=== PATIENT | male | born 1995 | race Caucasian/White ===

== ENCOUNTER 2018-04-17 15:04 | Emergency (ER) | payer OTHER ==
[2018-04-17] MEDS ORDERED: Tetan/Diph/Pertus SYR(Tdap)* 0.5 ML SYR(BOOSTRIX) use SYR IM ONE (17:22)
--- NOTE | 2018-04-17 17:23 | ED ---
Laceration/Wound HPI - HPI Summary HPI Summary: Patient is a 22-year-old male presenting to the ED with a laceration to the left hand which measures approximately 5 cm in length. He states he scraped it on a metal piece. He is unsure of last tetanus. Bleeding is well-controlled. Denies any pain. Denies any numbness or tingling. He is able to flex and extend about the MCP joints as well as the wrist. He has not taken any medication [employer]. - History of Current Complaint Stated Complaint: LT HAND LACERATION Time Seen by Provider: 04/17/18 15:29 Hx Obtained From: Patient Mechanism of Injury: Sharp/Blunt Trauma Onset/Duration: Sudden Onset Aggravating: Movement Alleviating: Compression Timing: Constant Onset Severity: Mild Current Severity: Mild Pain Intensity: 2 Pain Scale Used: 0-10 Numeric Associated Signs & Symptoms: Negative Related Hx: Dominant Hand (Left) - Allergy/Home Medications Allergies/Adverse Reactions: Allergies Allergy/AdvReac Type Severity Reaction Status Date / Time amoxicillin Allergy Rash Verified 04/21/18 19:24 PMH/Surg Hx/FS Hx/Imm Hx Previously Healthy: Yes Endocrine/Hematology History: Denies: Hx Diabetes, Hx Thyroid Disease Cardiovascular History: Denies: Hx Hypertension Respiratory History: Denies: Hx Asthma, Hx Chronic Obstructive Pulmonary Disease (COPD) GI History: Denies: Hx Ulcer - Immunization History Date of Tetanus Vaccine: Pt unsure. Unable to state PCP for call to determine last tetanus Hx Pertussis Vaccination: No Immunizations Up to Date: Yes Infectious Disease History: No Infectious Disease History: Denies: Hx Hepatitis, Hx Human Immunodeficiency Virus (HIV), Traveled Outside the [place] in Last 30 Days - Social History Occupation: Employed Full-time Lives: With Family Alcohol Use: None Hx Substance Use: No Substance Use Type: Reports: None Smoking Status (MU): Unknown if Ever Smoked Review of Systems Constitutional: Negative Negative: Fever, Chills, Fatigue, Skin Diaphoresis Negative: Palpitations, Chest Pain Negative: Shortness Of Breath, Cough Genitourinary: Negative Positive: no symptoms reported, see HPI Negative: Arthralgia, Myalgia Positive: Other - 5cm laceration Neurological: Negative All Other Systems Reviewed And Are Negative: Yes Physical Exam Triage Information Reviewed: Yes Vital Signs On Initial Exam: Initial Vitals Temp Pulse Resp BP Pulse Ox 99.2 F 64 16 123/69 99 04/17/18 15:17 04/17/18 15:17 04/17/18 15:17 04/17/18 15:17 04/17/18 15:17 Vital Signs Reviewed: Yes Appearance: Positive: Well-Appearing, Well-Nourished Skin: Positive: Warm, Skin Color Reflects Adequate Perfusion, Other - 5cm laceration to the left palm Head/Face: Positive: Normal Head/Face Inspection Eyes: Positive: EOMI, JENNIFFER, Conjunctiva Clear Neck: Positive: Supple, No Lymphadenopathy Respiratory/Lung Sounds: Positive: Clear to Auscultation, Breath Sounds Present Cardiovascular: Positive: RRR, Pulses are Symmetrical in both Upper and Lower Extremities Musculoskeletal: Positive: Normal, Strength/ROM Intact Neurological: Positive: Speech Normal Psychiatric: Positive: Normal Procedures - Laceration/Wound Repair 1 Location: upper extremity Description: Linear Anesthesia: Local Length, Depth and Shape: 5cm in length Betadine Prep?: No Irrigated w/ Saline (ccs): 60 Laceration/Wound Explored: clean Suture Type: Prolene Number of Sutures: 9 Diagnostics - Vital Signs Vital Signs Temp Pulse Resp BP Pulse Ox 04/17/18 15:17 99.2 F 64 16 123/69 99 - Laboratory Lab Statement: Any lab studies that have been ordered have been reviewed, and results considered in the medical decision making process. Laceration Repair Course/Dx - Course Course Of Treatment: Cleansed wound was thoroughly. Time out obtained. Irrigated well with normal saline. Anesthetized wound with lidocaine without epi. 9 sutures placed using simple interrupted technique. Tetanus updated. Patient tolerated well. Suture removal in 7 days. - Clinical Impression Provider Diagnoses: Laceration Discharge - Sign-Out/Discharge Documenting (check all that apply): Patient Departure - Discharge Plan Condition: Stable Disposition: HOME Patient Education Materials: Laceration (ED) Referrals: Freddie Castañeda MD [Primary Care Provider] - Additional Instructions: Suture removal in 7 days - Billing Disposition and Condition Condition: STABLE Disposition: Home
[2018-04-17 18:04] VITALS: BP 114/61
== END 2018-04-17 17:47 | disposition home or self-care (01) ==
LOC: ED 15:04
DX: S61.412A Laceration without foreign body of left hand, initial encounter (principal); W26.9XXA Contact with unspecified sharp object(s), initial encounter; Y92.9 Unspecified place or not applicable; Z23 Encounter for immunization; Z88.0 Allergy status to penicillin
CPT/HCPCS: 12002; 90471; 90715; 99282

== ENCOUNTER 2018-04-21 19:06 | Emergency (ER) | payer OTHER ==
[2018-04-21 19:24] VITALS: BP 127/72
[2018-04-21] MEDS ORDERED: Clindamycin CAP* 150 MG PO ONE (19:31)
--- NOTE | 2018-04-21 19:34 | ED ---
Skin Complaint - HPI Summary HPI Summary: 22M presents with right foot rash for past 4 days. he states that he got a laceration with glass in it two weeks ago. He states he removed some of the glass but is not sure that he got it all. He states the redness has been spreading. no fevers. no history of MRSA. no medical conditions. states is painful to walk on. - History of Current Complaint Chief Complaint: UCLowerExtremity Time Seen by Provider: 04/21/18 19:16 Stated Complaint: INFLAMED CUT ON FOOT Pain Intensity: 0 - Allergy/Home Medications Allergies/Adverse Reactions: Allergies Allergy/AdvReac Type Severity Reaction Status Date / Time amoxicillin Allergy Rash Verified 04/21/18 19:24 PMH/Surg Hx/FS Hx/Imm Hx Endocrine/Hematology History: Denies: Hx Diabetes, Hx Thyroid Disease Cardiovascular History: Denies: Hx Hypertension Respiratory History: Denies: Hx Asthma, Hx Chronic Obstructive Pulmonary Disease (COPD) GI History: Denies: Hx Ulcer - Immunization History Date of Tetanus Vaccine: Pt unsure. Unable to state PCP for call to determine last tetanus Infectious Disease History: No Infectious Disease History: Denies: Hx Hepatitis, Hx Human Immunodeficiency Virus (HIV), Traveled Outside the [place] in Last 30 Days - Family History Known Family History: Negative: Diabetes - Social History Alcohol Use: None Substance Use Type: Reports: None Smoking Status (MU): Former Smoker Review of Systems Negative: Fever Negative: Chest Pain Negative: Shortness Of Breath Positive: Rash All Other Systems Reviewed And Are Negative: Yes Physical Exam Triage Information Reviewed: Yes Vital Signs On Initial Exam: Initial Vitals Temp Pulse Resp BP Pulse Ox 99.8 F 108 14 127/72 99 04/21/18 19:16 04/21/18 19:16 04/21/18 19:16 04/21/18 19:16 04/21/18 19:16 Vital Signs Reviewed: Yes Appearance: Positive: Well-Appearing Skin: Positive: Warm, Dry, Other - erythema starting from right pinky extending to midfoot that is warm to touch Head/Face: Positive: Normal Head/Face Inspection Eyes: Positive: Normal, Conjunctiva Clear ENT: Positive: Pharynx normal Respiratory/Lung Sounds: Positive: Clear to Auscultation, Breath Sounds Present Cardiovascular: Positive: Normal, RRR Musculoskeletal: Positive: Strength/ROM Intact - right foot Neurological: Positive: Normal Psychiatric: Positive: Normal Diagnostics - Vital Signs Vital Signs Temp Pulse Resp BP Pulse Ox 04/21/18 19:16 99.8 F 108 14 127/72 99 - Laboratory Lab Statement: Any lab studies that have been ordered have been reviewed, and results considered in the medical decision making process. Course/Dx - Course Course Of Treatment: 22M presents with right foot rash for past 4 days. he states that he got a laceration with glass in it two weeks ago. He states he removed some of the glass but is not sure that he got it all. He states the redness has been spreading. no fevers. no history of MRSA. no medical conditions. states is painful to walk on. on exam erythema of right foot from pinky to midfoot that is warm to touch. no foreign body felt. told to continue warm soaks and if glass is still present it will work its way out. will place on clindamycin. patient understand and agrees with plan. - Differential Diagnoses - Skin Complaint Differential Diagnoses: Abscess, Cellulitis, Contact Dermatitis - Diagnoses Provider Diagnoses: Cellulitis of right foot Discharge - Sign-Out/Discharge Documenting (check all that apply): Patient Departure All imaging exams completed and their final reports reviewed: No Studies - Discharge Plan Condition: Good Disposition: HOME Prescriptions: Clindamycin Cap(NF) [Clindamycin Cap 300 mg Cap(NF)] 300 mg PO TID #29 cap Patient Education Materials: Cellulitis (ED) Referrals: Freddie Castañeda MD [Primary Care Provider] - Additional Instructions: Take clindamycin three times a day for 10 days, first dose given in UC Elevate extremity Take Tylenol or ibuprofen every 6 hours for pain Follow up with primary within 3 days Return to ED if redness spreads or any new or worsening symptoms - Billing Disposition and Condition Condition: GOOD Disposition: Home
== END 2018-04-21 19:50 | disposition home or self-care (01) ==
LOC: UCEAST 19:06
DX: L03.115 Cellulitis of right lower limb (principal); Z87.891 Personal history of nicotine dependence; Z88.1 Allergy status to other antibiotic agents; Z79.2 Long term (current) use of antibiotics
CPT/HCPCS: 99212; A9270-GY; G0463